=== PATIENT | female | born 1995 | race Caucasian/White ===

== ENCOUNTER 2022-12-21 06:58 | Observation (INO) | payer BC ==
[2022-12-21] MEDS ORDERED: Enoxaparin 100 MG/1 ML Syringe SUBCUT SCH (09:30)
[2022-12-21] MEDS: Enoxaparin 100 MG/1 ML Syringe SUBCUT SCH ×2 (10:12→22:22)
[2022-12-21] MEDS ORDERED: Ibuprofen 800 MG Tab PO ONE (11:41)
[2022-12-21 13:35] LABS: BASOPHILS ABSOLUTE AUTO 0.03 K/uL (0.00-0.20); BASOPHILS PERCENT AUTO 0.2 % (0.0-1.0); EOSINOPHILS ABSOLUTE AUTO 0.04 K/uL (0.00-0.45); EOSINOPHILS PERCENT AUTO 0.3 % (0.0-6.0); HEMATOCRIT 31.6 % (37.0-47.0); HEMOGLOBIN 10.7 g/dL (12.0-16.0); IMMATURE GRAN ABSOLUTE AUTO 0.08 K/uL (0.00-0.05); IMMATURE GRAN PERCENT AUTO 0.5 % (0.0-0.4); LYMPHOCYTES ABSOLUTE AUTO 2.05 K/uL (1.00-4.80); LYMPHOCYTES PERCENT AUTO 13.7 % (24.0-44.0); MEAN CORPUSCULAR HEMOGLOBIN 31.8 pg (28.0-32.0); MEAN CORPUSCULAR HGB CONC 33.9 g/dL (32.0-36.0); MEAN CORPUSCULAR VOLUME 93.8 fL (83.0-99.0); MEAN PLATELET VOLUME 9.2 fL (9.4-12.3); MONOCYTES ABSOLUTE AUTO 0.84 K/uL (0.00-0.80); MONOCYTES PERCENT AUTO 5.6 % (0.0-8.0); NEUTROPHILS ABSOLUTE AUTO 11.96 K/uL (1.80-7.70); NEUTROPHILS PERCENT AUTO 79.7 % (41.0-71.0); PLATELET COUNT,PLT 189 K/uL (150-400); RED BLOOD CELL COUNT 3.37 M/uL (4.10-5.30)
[2022-12-21 13:55] LABS: CALCIUM 8.8 mg/dL (8.5-10.1); CARBON DIOXIDE,CO2 21.7 mmol/L (21.0-32.0); CREATININE 0.6 mg/dL (0.6-1.0); EST CRCL DRUG DOSING (CG) 112.38 mL/min; POTASSIUM,K 3.6 mmol/L (3.5-5.1)
[2022-12-22] MEDS: Acetaminophen 325 MG Tab PO PRN ×2 (00:08→11:19)
[2022-12-22 08:56] LABS: PTT,PARTIAL THROMBOPLSTIN TIME 31.4 SEC (23.9-30.7)
[2022-12-22] MEDS: Enoxaparin 100 MG/1 ML Syringe SUBCUT SCH (10:07)
== END 2022-12-22 18:20 | disposition home or self-care (01) ==
LOC: MW.OB 06:58 → MW.OBCHECK 06:58 → MW.OB 12-22 09:00 → MW.OBCHECK 12-22 09:00
PROVIDERS: ADMIT Obstetrics & Gynecology; ATTEND Obstetrics & Gynecology
DX: O22.33 Deep phlebothrombosis in pregnancy, third trimester (principal); I82.4Y2 Acute embolism and thrombosis of unspecified deep veins of left proximal lower extremity; O99.343 Other mental disorders complicating pregnancy, third trimester; F90.9 Attention-deficit hyperactivity disorder, unspecified type; F41.9 Anxiety disorder, unspecified; F32.A Depression, unspecified; O99.213 Obesity complicating pregnancy, third trimester; E66.9 Obesity, unspecified; Z3A.29 29 weeks gestation of pregnancy
CPT/HCPCS: 36415; 59025; 80048; 85025; 85384; 85520; 85610; 85730; 93970; A9270; J1650

== ENCOUNTER 2023-02-26 13:33 | Inpatient (IN) | payer BC ==
[2023-02-26] MEDS ORDERED: Water For Irrigation,Sterile 1,000 ML Container IRR PRN (13:50)
[2023-02-26] MEDS ORDERED: Sodium Chloride 0.9% 20 ML SDV IV PRN (13:50)
[2023-02-26] MEDS ORDERED: Nalbuphine 10 MG/0.5 ML Syringe IVPUSH PRN (13:50)
[2023-02-26] MEDS ORDERED: Tranexamic Acid IN NACL,ISO-OS 1,000 MG in Premix Bag 1 BAG IV PRN ×2 (13:50)
[2023-02-26] MEDS ORDERED: Misoprostol 200 MCG Tab PO PRN (13:50)
[2023-02-26] MEDS ORDERED: Sodium Chloride 0.9% 10 ML Syringe FLUSH PRN (13:50)
[2023-02-26] MEDS ORDERED: Ondansetron 4 MG/2 ML SDV IVPUSH PRN (13:50)
[2023-02-26] MEDS ORDERED: Terbutaline 1 MG/ML SDV SUBCUT PRN (13:50)
[2023-02-26] MEDS ORDERED: Carboprost Tromethamine 250 MCG/1 mL Vial IM PRN (13:50)
[2023-02-26] MEDS ORDERED: Sodium Chloride 0.9% 2.5 ML Syringe FLUSH PRN (13:50)
[2023-02-26] MEDS ORDERED: Lidocaine 1% 50 ML MDV INJECT PRN (13:50)
[2023-02-26] MEDS ORDERED: Methylergonovine 0.2 MG/1 ML Amp IM PRN (13:50)
[2023-02-26] MEDS ORDERED: Misoprostol 25 MCG (1/4 of 100 MCG) Tab VAG PRN (14:00)
[2023-02-26] MEDS ORDERED: Ampicillin 2 GM in Sodium Chloride 0.9% 100 ML IV ONE (14:00)
[2023-02-26] MEDS ORDERED: Oxytocin/0.9 % Sodium Chloride 30 UNIT/500 ML BAG IV SCH ×2 (14:00)
[2023-02-26] MEDS ORDERED: ePHEDrine 50 MG/ML SDV IVPUSH PRN ×2 (14:16)
[2023-02-26 15:32] LABS: HEMATOCRIT 36.1 % (37.0-47.0); HEMOGLOBIN 12.1 g/dL (12.0-16.0); MEAN CORPUSCULAR HEMOGLOBIN 31.2 pg (28.0-32.0); MEAN CORPUSCULAR HGB CONC 33.5 g/dL (32.0-36.0); MEAN PLATELET VOLUME 10.8 fL (9.4-12.3); PLATELET COUNT,PLT 157 K/uL (150-400); RED BLOOD CELL COUNT 3.88 M/uL (4.10-5.30); WHITE BLOOD CELL COUNT,WBC 12.33 K/uL (3.9-11.3)
[2023-02-26] MEDS ORDERED: Ampicillin 2 GM Vial ONE (18:35)
[2023-02-26] MEDS ORDERED: Sodium Chloride 0.9% 100 ML ONE (18:35)
[2023-02-26] MEDS: Lactated Ringers 1,000 ML IV SCH (18:45)
[2023-02-26] MEDS: Ampicillin 1 GM in Sodium Chloride 0.9% 50 ML IV SCH ×2 (18:59→23:09)
[2023-02-26] MEDS: Misoprostol 25 MCG (1/4 of 100 MCG) Tab VAG PRN (23:41)
[2023-02-27] MEDS: Lactated Ringers 1,000 ML IV SCH ×4 (02:00→23:40)
[2023-02-27] MEDS: Ampicillin 1 GM in Sodium Chloride 0.9% 50 ML IV SCH ×6 (03:25→23:37)
[2023-02-27] MEDS: Misoprostol 25 MCG (1/4 of 100 MCG) Tab VAG PRN ×2 (03:32→07:38)
[2023-02-27] MEDS ORDERED: dexmedeTOMIDine HCl 200 MCG/2 ML SDV ONE (17:22)
[2023-02-27] MEDS ORDERED: Bupivacaine 0.25% 10 ML SDV ONE (17:23)
[2023-02-27] MEDS: Ropivacaine HCl/PF 400 MG in Premix Bag 1 BAG EPIDUR SCH (17:26)
[2023-02-28] MEDS: Ampicillin 1 GM in Sodium Chloride 0.9% 50 ML IV SCH ×4 (03:39→15:32)
[2023-02-28] MEDS: Lactated Ringers 1,000 ML IV SCH ×4 (04:31→23:34)
[2023-02-28] MEDS: Phenylephrine HCl 0.5 MG/5 ML AMP IVPUSH PRN ×2 (07:37→15:13)
[2023-02-28] MEDS: Ropivacaine HCl/PF 400 MG in Premix Bag 1 BAG EPIDUR SCH (14:35)
[2023-02-28] MEDS ORDERED: Acetaminophen 500 MG Tab PO ONE (16:22)
[2023-02-28] MEDS ORDERED: Azithromycin 500 MG in Sodium Chloride 0.9% 250 ML IV ONE (16:24)
[2023-02-28] MEDS ORDERED: ceFAZolin 2 GM in Sodium Chloride 0.9% 50 ML IV ONE (16:25)
[2023-02-28] MEDS ORDERED: Ondansetron 4 MG/2 ML SDV ONE ×2 (16:33→16:37)
[2023-02-28] MEDS ORDERED: Bupivacaine 0.5% 10 ML SDV ONE (16:37)
[2023-02-28] MEDS ORDERED: ceFAZolin 1 GM Vial ONE (16:37)
[2023-02-28] MEDS ORDERED: Oxytocin 10 Units/1 ML SDV ONE (16:37)
[2023-02-28] MEDS ORDERED: Ketorolac 30 MG/ML SDV ONE ×2 (16:37)
[2023-02-28] MEDS ORDERED: dexmedeTOMIDine HCl 200 MCG/2 ML SDV ONE (16:48)
[2023-02-28] MEDS ORDERED: Dexamethasone 4 MG/ML 5 ML MDV ONE (16:48)
[2023-02-28] MEDS ORDERED: Metoclopramide 10 MG/2 ML SDV ONE (16:55)
[2023-02-28] MEDS ORDERED: droPERidol 5 MG/2 ML SDV ONE (16:55)
[2023-02-28] MEDS ORDERED: Lidocaine 2% 5 ML SDV ONE ×2 (17:07→17:41)
[2023-02-28] MEDS ORDERED: Morphine PF 10 MG/10 ML SDV ONE (17:09)
[2023-02-28] MEDS ORDERED: Morphine 2 MG/ML SYRINGE IVPUSH PRN (17:19)
[2023-02-28] MEDS ORDERED: droPERidol 5 MG/2 ML SDV IVPUSH PRN (17:19)
[2023-02-28] MEDS ORDERED: Ondansetron 4 MG/2 ML SDV IVPUSH PRN ×3 (17:19→22:12)
[2023-02-28] MEDS ORDERED: Albuterol 0.083% 2.5 MG/3 ML Neb Soln NEB PRN (17:19)
[2023-02-28] MEDS ORDERED: HYDROmorphone 1 MG/ML Syringe IVPUSH PRN (17:19)
[2023-02-28] MEDS ORDERED: fentaNYL 100 MCG/2 ML SDV IVPUSH PRN (17:19)
[2023-02-28] MEDS ORDERED: diphenhydrAMINE 50 MG/ML SDV IVPUSH PRN (17:19)
[2023-02-28] MEDS ORDERED: fentaNYL 50 MCG/ML SDV IVPUSH PRN (17:19)
[2023-02-28] MEDS ORDERED: ePHEDrine 50 MG/ML SDV IVPUSH PRN (17:19)
[2023-02-28] MEDS ORDERED: Acetaminophen/oxyCODONE 325-5 MG Tab PO PRN (17:19)
[2023-02-28] MEDS ORDERED: Metoclopramide 10 MG/2 ML SDV IVPUSH PRN (17:19)
[2023-02-28] MEDS ORDERED: Naloxone 0.4 MG/ML SDV IVPUSH PRN (17:19)
[2023-02-28] MEDS ORDERED: fentaNYL 100 MCG/2 ML SDV ONE (17:47)
[2023-02-28] MEDS ORDERED: Phenylephrine HCl 0.5 MG/5 ML AMP ONE (17:50)
[2023-02-28] MEDS: Ketorolac 30 MG/ML SDV IVPUSH SCH (21:42)
[2023-02-28] MEDS ORDERED: oxyCODONE 5 MG Tab PO PRN (22:03)
[2023-02-28] MEDS ORDERED: Ibuprofen 800 MG Tab PO PRN (22:05)
[2023-02-28] MEDS ORDERED: Acetaminophen 500 MG Tab PO PRN (22:07)
[2023-02-28] MEDS ORDERED: Naloxone 0.4 MG/ML SDV IVPUSH ONE (22:11)
[2023-02-28] MEDS ORDERED: Sennosides 8.6 MG Tab PO PRN (22:21)
[2023-02-28] MEDS ORDERED: Polyethylene Glycol 3350 Powder 17 GM Packet PO PRN (22:22)
[2023-02-28] MEDS ORDERED: Bisacodyl 5 MG Tab PO PRN (22:49)
[2023-02-28] MEDS: Acetaminophen 1,000 MG in Premix Bag 1 BAG IV SCH (23:34)
[2023-03-01] MEDS: Ketorolac 30 MG/ML SDV IVPUSH SCH ×4 (01:00→18:40)
[2023-03-01 01:57] LABS: PH,UMBILICAL ARTERIAL 7.234 (7.18-7.38); PH,UMBILICAL VENOUS 7.292 (7.25-7.45)
[2023-03-01] MEDS: Acetaminophen 1,000 MG in Premix Bag 1 BAG IV SCH ×3 (05:35→16:55)
[2023-03-01 06:13] LABS: BASOPHILS ABSOLUTE AUTO 0.03 K/uL (0.00-0.20); BASOPHILS PERCENT AUTO 0.1 % (0.0-1.0); HEMATOCRIT 30.6 % (37.0-47.0); HEMOGLOBIN 10.1 g/dL (12.0-16.0); IMMATURE GRAN ABSOLUTE AUTO 0.23 K/uL (0.00-0.05); IMMATURE GRAN PERCENT AUTO 0.9 % (0.0-0.4); LYMPHOCYTES ABSOLUTE AUTO 1.18 K/uL (1.00-4.80); LYMPHOCYTES PERCENT AUTO 4.8 % (24.0-44.0); MEAN CORPUSCULAR HEMOGLOBIN 31.9 pg (28.0-32.0); MEAN CORPUSCULAR VOLUME 96.5 fL (83.0-99.0); MEAN PLATELET VOLUME 10.6 fL (9.4-12.3); MONOCYTES ABSOLUTE AUTO 0.82 K/uL (0.00-0.80); MONOCYTES PERCENT AUTO 3.3 % (0.0-8.0); NEUTROPHILS ABSOLUTE AUTO 22.35 K/uL (1.80-7.70); NEUTROPHILS PERCENT AUTO 90.9 % (41.0-71.0); PLATELET COUNT,PLT 156 K/uL (150-400); RED BLOOD CELL COUNT 3.17 M/uL (4.10-5.30); WHITE BLOOD CELL COUNT,WBC 24.61 K/uL (3.9-11.3)
[2023-03-01] MEDS: Docusate Sodium 100 MG Cap PO SCH ×2 (09:02→20:47)
[2023-03-01] MEDS ORDERED: Ketorolac 30 MG/ML SDV ONE (18:35)
[2023-03-01] MEDS ORDERED: Enoxaparin 100 MG/1 ML Syringe SUBCUT SCH (20:00)
[2023-03-02] MEDS: Docusate Sodium 100 MG Cap PO SCH (09:20)
[2023-03-02] MEDS ORDERED: Enoxaparin 100 MG/1 ML Syringe SUBCUT SCH (09:45)
== END 2023-03-02 13:56 | disposition home or self-care (01) | DRG 540 ==
LOC: MW.OBCHECK 13:33 → MW.OB 13:34 → MW.OBCHECK 14:03 → OBSVTOIN 14:05 → MW.OB 14:05
PROVIDERS: ADMIT Obstetrics & Gynecology; ATTEND Obstetrics & Gynecology
PROC: 0U7C7ZZ Dilation of Cervix, Via Natural or Artificial Opening (ICD-10-PCS; 2023-02-28)
PROC: 3E033VJ Introduction of Other Hormone into Peripheral Vein, Percutaneous Approach (ICD-10-PCS; 2023-02-28)
PROC: 10907ZC Drainage of Amniotic Fluid, Therapeutic from Products of Conception, Via Natural or Artificial Opening (ICD-10-PCS; 2023-02-28)
PROC: 3E0R3BZ Introduction of Anesthetic Agent into Spinal Canal, Percutaneous Approach (ICD-10-PCS; 2023-02-28)
PROC: 00HU33Z Insertion of Infusion Device into Spinal Canal, Percutaneous Approach (ICD-10-PCS; 2023-02-28)
PROC: 3E0P7VZ Introduction of Hormone into Female Reproductive, Via Natural or Artificial Opening (ICD-10-PCS; 2023-02-28)
PROC: 10D00Z1 Extraction of Products of Conception, Low, Open Approach (ICD-10-PCS; principal; 2023-02-28 18:00)
DX: O87.1 Deep phlebothrombosis in the puerperium (principal); O99.824 Streptococcus B carrier state complicating childbirth; I82.409 Acute embolism and thrombosis of unspecified deep veins of unspecified lower extremity; O99.214 Obesity complicating childbirth; O76 Abnormality in fetal heart rate and rhythm complicating labor and delivery; O77.0 Labor and delivery complicated by meconium in amniotic fluid; O62.2 Other uterine inertia; Z37.0 Single live birth; Z3A.39 39 weeks gestation of pregnancy; Z79.01 Long term (current) use of anticoagulants; Z86.16 Personal history of COVID-19
CPT/HCPCS: 01967; 36415; 51702; 59025; 82803; 85025; 85027; 86592; 86850; 86900; 86901; A9270-GY; J0131; J0290; J0456; J0665; J0690; J1100; J1650; J1790; J1885; J2274; J2300; J2371; J2405; J2590; J2765; J2795; J3010; J3490; J7050; J7120